=== PATIENT | male | born 1985 | race African-American/Black ===

== ENCOUNTER 2018-12-26 21:31 | Emergency (ER) | payer MEDICAID ==
[~2018-12-26] VITALS: Ht 193 cm; Wt 100.0 kg
[2018-12-26 21:40] VITALS: BP 132/71
[2018-12-26] MEDS ORDERED: ALBU18HF2 INH (22:12)
[2018-12-26] MEDS ORDERED: BENZ-16 PO (22:12)
[2018-12-26] MEDS ORDERED: ipratropium/albuterol 3ml nebule NEB ONE (22:15)
--- NOTE | 2018-12-26 22:36 | NUR ---
RT FINISHED NEB AND STATES, PT SOUNDS BETTER, NOT TIGHT.
--- NOTE | 2018-12-26 22:39 | NUR ---
PT STATES, I FEEL MUCH BETTER AFTER THE TREATMENT
== END 2018-12-26 22:40 | disposition home or self-care (01) ==
LOC: ER 21:32
DX: R05 Cough (principal); R09.89 Other specified symptoms and signs involving the circulatory and respiratory systems; J45.909 Unspecified asthma, uncomplicated; Z79.899 Other long term (current) drug therapy
CPT/HCPCS: 93005; 94640; 94760; 99283

== ENCOUNTER 2019-02-14 20:32 | Emergency (ER) | payer MEDICAID ==
[~2019-02-14] VITALS: Ht 193 cm; Wt 95.0 kg
[~2019-02-14 20:32] MED LIST: ALBU18HF2 INH
[2019-02-14 20:33] VITALS: BP 139/66
[2019-02-14] MEDS ORDERED: ALBU8.5H8 IH (21:09)
== END 2019-02-14 21:33 | disposition home or self-care (01) ==
LOC: ER 20:33
DX: J45.909 Unspecified asthma, uncomplicated (principal); Z76.0 Encounter for issue of repeat prescription; F12.90 Cannabis use, unspecified, uncomplicated
CPT/HCPCS: 99283

== ENCOUNTER 2020-05-31 17:22 | Emergency (ER) | payer MEDICAID ==
[~2020-05-31] VITALS: Ht 193 cm; Wt 102.3 kg
[~2020-05-31 17:22] MED LIST changes: +ALBU8.5H8 IH
--- NOTE | 2020-05-31 18:29 | NUR ---
PATIENT AMBULATED FROM LOBBY TO FASTRACK BED C: SPO2 99%, HR 70, RR EVEN AND UNLABORED
[2020-05-31] MEDS ORDERED: ALBU8HFA PO (19:01)
[2020-05-31] MEDS ORDERED: P-EP-35 PO (19:01)
== END 2020-05-31 19:32 | disposition home or self-care (01) ==
LOC: ER 17:22
DX: J45.909 Unspecified asthma, uncomplicated (principal); F12.90 Cannabis use, unspecified, uncomplicated; Z79.899 Other long term (current) drug therapy
CPT/HCPCS: 99283